=== PATIENT | male | born 1980 | race Two or more races ===

== ENCOUNTER 2020-08-17 10:27 | Outpatient (CLI) | payer OTHER | END 2020-08-17 11:30 | disposition home or self-care (01) | LOC: OFIC 805 10:27 | PROVIDERS: ATTEND Otolaryngology Otology & Neurotology | DX: H93.13 Tinnitus, bilateral (principal) ==

== ENCOUNTER → 2020-09-28 | Outpatient (CLI) | payer OTHER | END | disposition home or self-care (01) | LOC: OFIC 805 08:16 | PROVIDERS: ATTEND Otolaryngology Otology & Neurotology | DX: H93.13 Tinnitus, bilateral (principal); H81.03 Meniere's disease, bilateral ==